=== PATIENT | male | born 1955 | race African-American/Black ===

== ENCOUNTER 2019-07-26 15:44 | Inpatient (IN) | payer OTHER, MEDICAID ==
[~2019-07-26] VITALS: Ht 172.7 cm; Wt 82.7 kg
[2019-07-26] MEDS ORDERED: SODIUM CHLORIDE 0.9% 1,000 ML IV ONE (16:13)
[2019-07-26 16:59] LABS: Basophils # (auto) 0 uL; Eosinophils # (auto) 0 uL; Hematocrit 36.5 % (41.0-53.0); Hemoglobin 11.7 g/dL (13.5-17.5); Mean Corpuscular Hemoglobin 34.1 pg (28.0-32.0); Mean Corpuscular Volume 106.5 fL (80.0-100.0); Monocytes # (auto) 0.6 uL; Monocytes % (auto) 2.1 % (0.0-12.0)
[2019-07-26 17:01] LABS: Basophils % (auto) 0.1 % (0.0-2.0); Lymphocytes # (auto) 0.4 uL; Lymphocytes % (auto) 1.2 % (10.0-50.0); Neutrophils % (auto) 96.6 % (37.0-80.0); Platelet Count (auto) 116 10^3/uL (140-450); Red Blood Cells 3.42 10^6/uL (4.5-5.90); Red Cell Distribution Width 15.2 % (11.8-14.3); White Blood Cell 28.9 10^3/uL (4.4-10.8)
[2019-07-26 17:15] LABS: Alanine Aminotransferase 21 U/L (16-61); Albumin 2.5 g/dL (3.4-5.0); Anion Gap 13 (5-15); Aspartate Aminotransferase 50 U/L (15-37); BUN/Creatinine Ratio 8.1; Blood Urea Nitrogen 18 mg/dL (7-18); Calcium 7.8 mg/dL (8.5-10.1); Carbon Dioxide 16 mmol/L (21-32); Chloride 109 mmol/L (98-107); GFR African American 39 mL/min; GFR Non-African American 32 mL/min; Glucose 194 mg/dL (74-106); Magnesium 1.6 mg/dL (1.6-2.6); Potassium 4.6 mmol/L (3.5-5.1); Sodium 138 mmol/L (136-145)
[2019-07-26 17:17] LABS: Alkaline Phosphatase 70 U/L (45-117); Bilirubin, Total 1.3 mg/dL (0.2-1.0); Total Protein 6.9 g/dL (6.4-8.2)
[2019-07-26 17:20] LABS: Lactic Acid w/Reflex 6.4 mmol/L (0.4-2.0)
[2019-07-26] MEDS ORDERED: NITROGLYCERIN 0.4 MG SL TAB SL PRN (18:45)
[2019-07-26] MEDS ORDERED: MORPHINE SULF INJ 2 MG/ML SYRINGE 1ML IV PRN (18:45)
[2019-07-26] MEDS ORDERED: ONDANSETRON HCL 4 MG/2 ML VIAL IV PRN (18:45)
[2019-07-26] MEDS ORDERED: VANCOMYCIN PER PHARMACY 0 MG IV SCH (18:45)
[2019-07-26] MEDS ORDERED: VANCOMYCIN 1GM/250ML 250 ML IV ONE (20:00)
[2019-07-26 20:10] VITALS: BP 126/86
--- NOTE | 2019-07-26 20:10 | NUR ---
Admit to DEB CIELO KUMAR admitted to DEB via gurney on business development officer Patient transferred to bed, connected to unit monitoring and oxygen, and weighed by bed scale. Patient oriented to Adrienne mcnulty RN, unit, room, bed, and unit policies regarding patient care and visiting hours. All questions and concerns addressed, patient verbalized understanding. NOTE: PATIENT IS AWAKE, ALERT AND ORIENTED X4. NO SOB, DISTRESS OR PAIN NOTED. ON ROOM AIR. ST 110S, BP 90S SYSTOLIC WOUNDS NOTED TO RIGHT KNEE AND ANKLE, AND LEFT ANKLE. PICS WILL BE TAKEN.
--- NOTE | 2019-07-26 20:15 | NUR ---
UNABLE TO OBTAIN MED REC PATIENT DOESN'T KNOW WHAT MEDS HE TAKES AT HOME. SAID THAT HIS FAMILY WILL NOT BE AVAILABLE TO BRING THEM IN TOMORROW. WILL ENDORSE FOR THE AM NURSE TO ATTEMPT
[2019-07-26 20:20] VITALS: BP 126/86
--- NOTE | 2019-07-26 20:25 | NUR ---
HYGIENE CARE FULL BED BATH PERFORMED USING CHG WIPES. GOWN CHANGED. PARTIAL LINEN CHANGED. PATIENT REPOSITIONED FOR COMFORT. TOLERATED IT WELL.
--- NOTE | 2019-07-26 20:30 | NUR ---
MRSA SWAB OBTAINED AND SENT TO LAB VIA BULLET
--- NOTE | 2019-07-26 20:35 | NUR ---
WOUND PICS TAKEN OF RIGHT AND LEFT ANKLES, AND RIGHT KNEE. WOUND FORMS FILLED OUT AND PLACED IN WOUND BOX IN DEB. CAMERA RETURNED TO PSYCHIATRIC.
[2019-07-26] MEDS: SODIUM CHLORIDE 0.9% 1,000 ML IV SCH (21:03)
[2019-07-26] MEDS: MAGNESIUM SULFATE 1GM/100ML 100 ML IV SCH ×2 (21:03→22:28)
[2019-07-26] MEDS: ATORVASTATIN 20 MG TAB PO SCH (21:03)
[2019-07-26] MEDS: HEPARIN SODIUM (PORCINE) 5000 UNITS/ML 1ML VIAL SC SCH (21:04)
--- NOTE | 2019-07-26 21:20 | NUR ---
SPOKE WITH APPLIANCE MECHANIC PHYSICIAN FOR [facility] REGARDING PATIENT. WANTED TO INFORM HER THAT SPOKE WITH DR. HUTCHINS WHO TOLD ME THAT SHE IS UNABLE TO GIVE ME ORDERS BECAUSE THIS PATIENT IS NOT ON HER LIST AND THAT SHE DOESN'T THINK HE HAS [facility]. INFORMED HER THAT DR. BARRIOS ADMITTED THE PATIENT BUT SHE STILL REFUSED TO GIVE ME ORDRERS. CHILD CARE ATTENDANT AWARE. Addendum: 07/27/19 at 0008 by Adrienne Gonsales RN *WANTED TO INFORM HER THAT PATIENTS BP 70-80S AND THAT LACTIC ACID LEVEL WAS STILL ELEVATED NOW 6.3.
[2019-07-26 21:29] LABS: Urine Bacteria FEW /hpf (None Seen); Urine Blood 1+ /uL (Negative); Urine Specific Gravity 1.015 (1.001-1.035); Urine WBC 35 /hpf (0 - 3)
--- NOTE | 2019-07-26 22:55 | NUR ---
SPOKE WITH EVA BRUNO HOSPITALIST REGARDING THE PATIENT. HE SAID THAT HE CANNOT GIVE ORDERS BECAUSE THE PATIENT BELONGS TO [facility].
--- NOTE | 2019-07-26 22:56 | NUR ---
SPOKE WITH LEXA PÉREZ REGARDING NEED FOR ORDERS AND THAT [facility] GUARD CHIEF DOCTOR NOT WANTING TO GIVE ORDERS FOR THE PATIENT. TOLD ME TO CALL HOSPITALIST AND GET ORDERS FROM HIM.
[2019-07-27] VITALS: BP 100/54
[2019-07-27] MEDS: PIPERACILLIN-TAZOB 2.25GM 50 ML IV SCH ×2 (00:11→05:55)
--- NOTE | 2019-07-27 01:00 | NUR ---
STATUS UPDATE PATIENT IS LAYING IN BED SLEEPING. BP MAINTAINING IN THE 90S. WILL HOLD OFF PAGING HOSPITALIST AT THIS TIME.
[2019-07-27 04:00] VITALS: BP 103/52
[2019-07-27 05:04] LABS: Hemoglobin 10.3 g/dL (13.5-17.5); Lymphocytes # (auto) 0.7 uL; Lymphocytes % (auto) 2.8 % (10.0-50.0); Monocytes # (auto) 0.7 uL
[2019-07-27 05:09] LABS: Basophils # (auto) 0.1 uL; Basophils % (auto) 0.4 % (0.0-2.0); Eosinophils # (auto) 0.2 uL; Hematocrit 30.8 % (41.0-53.0); Mean Corpuscular Hemoglobin 34.6 pg (28.0-32.0); Mean Corpuscular Hgb Conc. 33.5 g/dL (32.0-36.0); Mean Corpuscular Volume 103.3 fL (80.0-100.0); Monocytes % (auto) 2.8 % (0.0-12.0); Neutrophils # (auto) 23.9 uL; Platelet Count (auto) 96 10^3/uL (140-450); Red Blood Cells 2.98 10^6/uL (4.5-5.90); Red Cell Distribution Width 14.7 % (11.8-14.3); White Blood Cell 25.7 10^3/uL (4.4-10.8)
[2019-07-27 05:26] LABS: Albumin 2.3 g/dL (3.4-5.0); Calcium 7.9 mg/dL (8.5-10.1); Potassium 3.9 mmol/L (3.5-5.1)
[2019-07-27 05:31] LABS: Bilirubin, Total 1.1 mg/dL (0.2-1.0); Lactic Acid w/Reflex 3.1 mmol/L (0.4-2.0); Total Protein 6.3 g/dL (6.4-8.2)
[2019-07-27] MEDS: HEPARIN SODIUM (PORCINE) 5000 UNITS/ML 1ML VIAL SC SCH ×3 (05:58→22:27)
--- NOTE | 2019-07-27 06:15 | NUR ---
US TECH AT BEDSIDE DOING BILAT LE US.
--- NOTE | 2019-07-27 07:27 | NUR ---
END OF SHIFT REPORT GIVEN AND CARE ENDORSED TO YIMI SHARPE
[2019-07-27 08:00] VITALS: BP 119/54
--- NOTE | 2019-07-27 08:00 | NUR ---
Opening Shift Note Assumed care of patient, awake and alert. Patient A&Ox4. Patient on the monitor. IV right AC 20G running NS at 75ml/hr and left forearm 22G saline locked, both IV's patent, clean, dry, and intact. No S/S of distress/SOB or pain. Instructed on POC and to call for assist. Bed locked and in the lowest position, side rails up x2, call light with in reach. Will continue to monitor.
--- NOTE | 2019-07-27 08:30 | NUR ---
Patient sitting up in bed eating breakfast independently. Will continue to monitor.
--- NOTE | 2019-07-27 09:10 | NUR ---
order entry technician at bedside.
--- NOTE | 2019-07-27 10:00 | NUR ---
Medication dosages, usages, and side effects explained to patient. Patient verbalized understanding. Will continue to monitor.
[2019-07-27] MEDS ORDERED: hydrALAZINE HCL 20 MG/ML VL IV PRN (10:30)
[2019-07-27] MEDS ORDERED: DEXTROSE (50%) 50ML SYRG IV PRN (10:30)
--- NOTE | 2019-07-27 10:30 | NUR ---
Dr. Brennan at bedside.
[2019-07-27] MEDS: PREGABALIN 25 MG CAP PO SCH (10:35)
[2019-07-27] MEDS: SODIUM CHLORIDE 0.9% 1,000 ML IV SCH ×2 (10:36→23:36)
[2019-07-27] MEDS: ASPirin-EC 81 mg tab PO SCH (10:36)
[2019-07-27] MEDS: HYDROcodone-ACET 10/325MG TAB PO PRN ×2 (10:38→22:26)
[2019-07-27] MEDS: ACCU-CHEK COMFORT CURVE STRIP VI SCH ×3 (11:30→22:00)
[2019-07-27] MEDS: InsuLIN REG 1unit/0.01ml Soln (100units/ml) SC SCH ×4 (11:30→22:00)
--- NOTE | 2019-07-27 11:45 | NUR ---
Dr. Ulloa at bedside. No new orders.
[2019-07-27] MEDS: VANCOMYCIN 1GM/250ML 250 ML IV SCH (11:56)
[2019-07-27 12:00] VITALS: BP 127/62
[2019-07-27] MEDS ORDERED: PIPERACILLIN-TAZOB 3.375GM 100 ML IV SCH (12:00)
--- NOTE | 2019-07-27 12:15 | NUR ---
Report given to Saman SHARPE. Patient going to room 286B on tele box #[id number].
--- NOTE | 2019-07-27 12:40 | NUR ---
Patient taken to room 286B. All belongings taken with the patient including Patient's wheel chair. Patient in the room and resting ANNEMARIE smith.
--- NOTE | 2019-07-27 12:45 | NUR ---
Received patient from DEB, patient oriented to new room. Patient awake, alert x 4 and verbally responsive. Respiratory even and unlabored. Skin is warm and dry to touch. Placed call light within reach, will continue to monitor.
[2019-07-27 13:00] VITALS: BP_SYST 112; BP_SYST 128; BP_DIAS 68; BP_DIAS 77
[2019-07-27] MEDS: PIPERACILLIN-TAZOB 3.375GM 100 ML IV SCH ×2 (14:05→18:22)
--- NOTE | 2019-07-27 19:15 | NUR ---
Opening Shift Note Received report from Mary Ellen singer RN. Assumed care of patient, awake and alert, resting in bed saturating at 96% on room air. No S/S of distress/SOB or pain. Instructed on POC and to call for assist PRN, will continue to monitor for changes Q1hr and PRN. Bed placed in lowest position, bed alarm turned on, and call light within reach. Urinal within reach of patient. Wheelchair at bedside. Will monitor.
[2019-07-27 22:00] VITALS: BP 128/72
[2019-07-27] MEDS: ATORVASTATIN 20 MG TAB PO SCH (22:25)
[2019-07-28] MEDS: PIPERACILLIN-TAZOB 3.375GM 100 ML IV SCH ×4 (02:06→18:24)
[2019-07-28 05:00] VITALS: BP 134/82
[2019-07-28] MEDS: VANCOMYCIN 1GM/250ML 250 ML IV SCH ×2 (05:27→23:37)
[2019-07-28] MEDS: HYDROcodone-ACET 10/325MG TAB PO PRN ×3 (05:28→23:51)
[2019-07-28] MEDS: HEPARIN SODIUM (PORCINE) 5000 UNITS/ML 1ML VIAL SC SCH ×2 (05:31→22:38)
[2019-07-28] MEDS: ACCU-CHEK COMFORT CURVE STRIP VI SCH ×4 (06:05→23:38)
[2019-07-28] MEDS: InsuLIN REG 1unit/0.01ml Soln (100units/ml) SC SCH ×4 (06:05→22:00)
--- NOTE | 2019-07-28 07:00 | NUR ---
ROUNDS PATIENT IS RESTING IN BED WITH EYES CLOSED, NO DISTRESS NOTED AND PATIENT DENIES PAIN.
--- NOTE | 2019-07-28 07:58 | NUR ---
Opening Shift Note Assumed care of patient, awake and alert. No S/S of distress/SOB or pain. Instructed on POC and to call for assist PRN, will continue to monitor for changes Q1hr and PRN.
[2019-07-28 08:30] VITALS: BP 124/86
[2019-07-28] MEDS: PREGABALIN 25 MG CAP PO SCH (10:05)
[2019-07-28] MEDS: ASPirin-EC 81 mg tab PO SCH (10:05)
[2019-07-28] MEDS: SODIUM CHLORIDE 0.9% 1,000 ML IV SCH ×2 (10:07→23:38)
[2019-07-28 10:09] LABS: BUN/Creatinine Ratio 11.6; Potassium 3.9 mmol/L (3.5-5.1)
--- NOTE | 2019-07-28 10:30 | NUR ---
Wound care Patient would like to wait until after pain medication for dressing change.
[2019-07-28 12:30] VITALS: BP 140/85
--- NOTE | 2019-07-28 12:30 | NUR ---
Accu Check Accu-check 66, rechecked was 61. Gave cranberry juice x2 and rechecked was at 63. Encouraged patient to eat fruits from lunch tray and rechecked, went to 78. Patient was encouraged to eat his lunch.
[2019-07-28] MEDS ORDERED: HEPARIN SODIUM (PORCINE) 5000 UNITS/ML 1ML VIAL SC SCH (14:00)
--- NOTE | 2019-07-28 15:57 | NUR ---
Seizure Activity Received phone call from mayito stating that patient is having seizure activity. Patient shaking uncontrollably and is unresponsive. Lasted for about 2 minutes. As per family member, the patient was sitting up conversing with them then she said everyone out and beckoned for persons to leave room. Her eyes then went into a fixed stare, she became unresponsive and started to shake. Family member noted that she was complaining of feeling very hot prior to this happening. Her hands were sweating and extremely cold to touch. Ativan 1mg IV administered as ordered and patient began to say "I am sorry". She is alert and oriented but drowsy. V/S P. 111, R. 22, B/P. 136/66, O2. 92-100% Addendum: 07/28/19 at 1616 by CHRISTEL ROBERT RN Please disregard note. Wrong patient
--- NOTE | 2019-07-28 16:10 | NUR ---
Wound Care Patient refusing dressing change at this time, states he is very sleepy as he did not get enough sleep last night.
[2019-07-28 16:50] VITALS: BP 130/80
[2019-07-28 22:00] VITALS: BP 142/85
[2019-07-28] MEDS: ATORVASTATIN 20 MG TAB PO SCH (22:40)
[2019-07-29] MEDS: PIPERACILLIN-TAZOB 3.375GM 100 ML IV SCH ×4 (01:30→19:00)
[2019-07-29 05:00] VITALS: BP 135/80
[2019-07-29] MEDS: ACCU-CHEK COMFORT CURVE STRIP VI SCH ×4 (06:43→22:26)
[2019-07-29] MEDS: HEPARIN SODIUM (PORCINE) 5000 UNITS/ML 1ML VIAL SC SCH ×3 (06:47→22:18)
[2019-07-29] MEDS: InsuLIN REG 1unit/0.01ml Soln (100units/ml) SC SCH ×4 (06:52→22:00)
--- NOTE | 2019-07-29 08:10 | NUR ---
OPENING NOTE ASSUMED CARE OF PT. ALERT AND ORIENTED. NO S/S SOB/DISTRESS NOTED. SAFETY PRECAUTIONS IN PLACE. BED SET TO LOWEST POSITION/LOCKED, BEDSIDE RAILS UP X2, CALL LIGHT WARTHIN REACH. INSTRUCTED PATIENT TO CALL FOR ASSISTANCE. UPDATED ON POC. PT VERBALIZED UNDERSTANDING. WILL CONTINUE TO MONITOR Q1HR AND PRN.
[2019-07-29 08:30] VITALS: BP_SYST 155; BP_SYST 156; BP_DIAS 84; BP_DIAS 89
--- NOTE | 2019-07-29 09:00 | NUR ---
ENDORSED CARE TO ANNEMARIE JOHNSON.
--- NOTE | 2019-07-29 09:30 | NUR ---
Opening shift Assumed care of patient, awake and alert, resting in bed saturating at 96% on room air. No S/S of distress/SOB or pain. Instructed on POC and to call for assist PRN, will continue to monitor for changes Q1hr and PRN. Bed placed in lowest position, bed alarm turned on, and call light within reach. Urinal within reach of patient. Wheelchair at bedside. Will monitor.
[2019-07-29] MEDS: PREGABALIN 25 MG CAP PO SCH (11:00)
[2019-07-29] MEDS: ASPirin-EC 81 mg tab PO SCH (11:01)
[2019-07-29] MEDS: HYDROcodone-ACET 10/325MG TAB PO PRN ×2 (12:29→22:14)
[2019-07-29 13:24] LABS: Basophils # (auto) 0.1 uL; Eosinophils # (auto) 0.2 uL; Hemoglobin 12.4 g/dL (13.5-17.5); Neutrophils # (auto) 6.5 uL
[2019-07-29 13:26] LABS: Basophils % (auto) 1.2 % (0.0-2.0); Eosinophils % (auto) 1.8 % (0.0-7.0); Hematocrit 36.4 % (41.0-53.0); Lymphocytes # (auto) 1.6 uL; Lymphocytes % (auto) 17.2 % (10.0-50.0); Mean Corpuscular Hemoglobin 35.1 pg (28.0-32.0); Mean Corpuscular Volume 103.4 fL (80.0-100.0); Monocytes # (auto) 1.1 uL; Neutrophils % (auto) 67.8 % (37.0-80.0); Nucleated Red Blood Cells % 0.1 %; Platelet Count (auto) 108 10^3/uL (140-450); Red Blood Cells 3.52 10^6/uL (4.5-5.90); Red Cell Distribution Width 14.8 % (11.8-14.3); White Blood Cell 9.5 10^3/uL (4.4-10.8)
[2019-07-29 13:39] LABS: Albumin 2.6 g/dL (3.4-5.0); Calcium 9.3 mg/dL (8.5-10.1)
[2019-07-29 13:42] LABS: BUN/Creatinine Ratio 7.6; Bilirubin, Total 1.1 mg/dL (0.2-1.0); Total Protein 7.5 g/dL (6.4-8.2)
--- NOTE | 2019-07-29 14:35 | NUR ---
Patient off unit, via wheel chair, taken for CT.
[2019-07-29] MEDS: SODIUM CHLORIDE 0.9% 1,000 ML IV SCH (14:53)
--- NOTE | 2019-07-29 15:00 | NUR ---
IV removal IV on right A/C not patent removed with sterile technique, catheter fully intact. Pressure dressing applied to site. Patient tolerated procedure well. NOTE:
--- NOTE | 2019-07-29 16:25 | NUR ---
IV insertion IV access obtained, via clean sterile technique by inserting 22 gauge catheter at right A/C after 3 attempts. IV secured properly. No trauma to site. Patient tolerated well. NOTE:
[2019-07-29 16:58] VITALS: BP 152/65
--- NOTE | 2019-07-29 17:15 | NUR ---
Patient refuses accucheck/Glucose monitoring stated "I'm not diabetic, and I've never been". Patient educated on importance, patient still refused.
[2019-07-29] MEDS: VANCOMYCIN 1GM/250ML 250 ML IV SCH (18:37)
--- NOTE | 2019-07-29 19:30 | NUR ---
received report from day rn poc reviewed
[2019-07-29 22:00] VITALS: BP 145/89
--- NOTE | 2019-07-29 22:00 | NUR ---
up in w/c c/o general leg pain will medicate as ordered
[2019-07-29] MEDS: ATORVASTATIN 20 MG TAB PO SCH (22:15)
--- NOTE | 2019-07-30 01:09 | NUR ---
resting with eyes closed bed alarm intact call light within reach
[2019-07-30] MEDS: PIPERACILLIN-TAZOB 3.375GM 100 ML IV SCH ×4 (04:52→13:00)
[2019-07-30] MEDS: SODIUM CHLORIDE 0.9% 1,000 ML IV SCH (04:53)
[2019-07-30 04:56] VITALS: BP 148/100
[2019-07-30] MEDS: ACCU-CHEK COMFORT CURVE STRIP VI SCH ×2 (05:30→11:30)
[2019-07-30] MEDS: InsuLIN REG 1unit/0.01ml Soln (100units/ml) SC SCH ×2 (05:30→11:30)
[2019-07-30 05:33] LABS: Mean Corpuscular Volume 102.2 fL (80.0-100.0)
[2019-07-30 05:37] LABS: Hemoglobin 11.1 g/dL (13.5-17.5); Mean Corpuscular Hemoglobin 34.3 pg (28.0-32.0); Mean Corpuscular Hgb Conc. 33.6 g/dL (32.0-36.0); Platelet Count (auto) 110 10^3/uL (140-450); Red Blood Cells 3.23 10^6/uL (4.5-5.90); Red Cell Distribution Width 14.7 % (11.8-14.3); White Blood Cell 8.9 10^3/uL (4.4-10.8)
[2019-07-30] MEDS: HEPARIN SODIUM (PORCINE) 5000 UNITS/ML 1ML VIAL SC SCH ×2 (05:39→14:00)
[2019-07-30 05:45] LABS: Calcium 8.9 mg/dL (8.5-10.1); Magnesium 1.8 mg/dL (1.6-2.6); Potassium 3.7 mmol/L (3.5-5.1)
[2019-07-30 05:47] LABS: BUN/Creatinine Ratio 6.1
[2019-07-30 06:11] LABS: Basophils % (manual) 0 (0.0-2.0); Blast Cells 0; Metamyelocytes % 0; Myelocytes % 0; Promyelocytes % 0; Reactive Lymphocytes 0
--- NOTE | 2019-07-30 06:43 | NUR ---
awoke denies pain or discomfort, will continue to monitor and report off to am nurse
[2019-07-30 07:29] LABS: Band Neutrophils % (manual) 3; Eosinophils % (manual) 1 (0-7); Lymphocytes % (manual) 19 (10.0-50.0); Monocytes % (manual) 23 (0-12)
[2019-07-30] MEDS: HYDROcodone-ACET 10/325MG TAB PO PRN (08:34)
[2019-07-30 09:00] VITALS: BP 161/86
[2019-07-30] MEDS ORDERED: MET25T PO (09:09)
[2019-07-30] MEDS ORDERED: PREG100C PO (09:10)
[2019-07-30] MEDS ORDERED: MISC4CAP PO (09:12)
[2019-07-30] MEDS ORDERED: CIPR-173 PO (09:12)
[2019-07-30] MEDS: ASPirin-EC 81 mg tab PO SCH (09:48)
[2019-07-30] MEDS: PREGABALIN 25 MG CAP PO SCH (09:50)
--- NOTE | 2019-07-30 11:29 | NUR ---
WOUND CARE WOUNDS TO BILATERAL ANKLES AND RIGHT KNEE CLEANSED WITH WOUND CLEANSER, PATTED DRY WITH 4X4'S AND COVERED WITH OPTIFOAM, DC PHOTOS TAKEN WELL.
[2019-07-30] MEDS: VANCOMYCIN 1GM/250ML 250 ML IV SCH (12:00)
--- NOTE | 2019-07-30 12:06 | NUR ---
PT REPORTS HIS TRANSPORTATION IS HERE AND HE WANTS TO GO HOME. PT REFUSING ACCUCHECK AND VANCOMYCIN, HE REPORTS HE JUST WANTS TO GO HOME. EDUCATED PATIENT IT MAY TAKE A LITTLE BIT FOR SS TO SET HIM UP WITH HOME HEALTH AND DISCHARGE PAPERWORK TAKES SOME TIME. ENCOURAGED PT TO DO ACCUCHECK AND THE IMPORTANCE OF TAKING ABX TO FIGHT INFECTION. PT REFUSED AGAIN, WILL CONTINUE TO MONITOR.
--- NOTE | 2019-07-30 12:10 | NUR ---
CALLED AUT[employer] RADIO MECHANIC TO SET UP HOME HEALTH PATIENT WOULD LIKE TO GO HOME KEVIN. CALLED AND LEFT MESSAGE WITH BESSY BAUTISTA, AWAITING CALL BACK.
[2019-07-30 12:44] VITALS: BP 161/86
[2019-07-30 13:00] VITALS: BP 169/92
--- NOTE | 2019-07-30 13:08 | NUR ---
PT AND FRIEND AGITATED AND PT REPORTS HE WANTS TO GO HOME. EXPLAINED TO PATIENT DISCHARGE PAPERWORK ALMOST DONE AND CALL ALREADY PUT IN WITH SELF DEFENSE INSTRUCTOR, WAITING TO HEAR BACK.
--- NOTE | 2019-07-30 13:35 | NUR ---
CALLED [facility], PHARMACIST REPORTS THEY WILL FILL PT PRESCRIPTIONS NOW.
--- NOTE | 2019-07-30 14:54 | NUR ---
Assessment Pt is a 64 yr old alert and oriented male. Pt lives at home with his 2 sons who help to take care of him by cooking and cleaning. Pt uses w/c bread supervisor and has a shower chair that he uses. Pt states that he is independent with his ADLs. Pt admitted with a UTI. SS consult for HH order for wound care, PT and safety evaluation. TANYA Arriaza is presently working on setting up the pt with HH. Pt receives income through [employer] because of prior work history. Pt has no interest in AD presently. Pt's son was bedside with the pt and will transport home upon d/c. Pt stated that he feels safe going back home with HH and family support. Pt to d/c back home with services. Addendum: 07/30/19 at 1501 by AGUSTIN CUMMINGS Amended: Links added.
--- NOTE | 2019-07-30 14:58 | NUR ---
PRESCRIPTIONS BROUGHT TO PATIENT BY PHARMACY. SPOKE TO BESSY BAUTISTA, BESSY REPORTS [facility] WILL START SETTING UP HOME HEALTH WITH [facility] NOW. SPOKE WITH PATIENT. PATIENT REPORTS HE DOES NOT WANT TO WAIT, HE WANTS TO GO HOME NOW. EDUCATED PT IT IS HOSPITAL POLICY TO HAVE HOME HEALTH SET UP BEFORE PATIENT LEAVES. PT REPORTS HE WOULD STILL LIKE TO GO HOME. PT ALSO REFUSED AFTERNOON MEDS.
--- NOTE | 2019-07-30 15:30 | NUR ---
HH per Sonya at [facility] pt has been accepted and start of care 24- 48 hrs post d/c
== END 2019-07-30 14:00 | disposition home health service (06) | DRG 871 ==
LOC: EDBD 15:44 → ER 15:52 → TELE 15:53 → DOU IN ICU 20:53 → TELE-WESTW 07-27 12:34
PROVIDERS: ADMIT Hospitalist; ATTEND Hospitalist
DX: A41.9 Sepsis, unspecified organism (principal); L89.514 Pressure ulcer of right ankle, stage 4; N17.0 Acute kidney failure with tubular necrosis; N39.0 Urinary tract infection, site not specified; I24.8 Other forms of acute ischemic heart disease; Z16.11 Resistance to penicillins; B96.1 Klebsiella pneumoniae [K. pneumoniae] as the cause of diseases classified elsewhere; E86.0 Dehydration; I10 Essential (primary) hypertension; E78.5 Hyperlipidemia, unspecified; E11.40 Type 2 diabetes mellitus with diabetic neuropathy, unspecified; I87.8 Other specified disorders of veins; L89.899 Pressure ulcer of other site, unspecified stage; J44.9 Chronic obstructive pulmonary disease, unspecified; E11.22 Type 2 diabetes mellitus with diabetic chronic kidney disease; F17.200 Nicotine dependence, unspecified, uncomplicated; I12.9 Hypertensive chronic kidney disease with stage 1 through stage 4 chronic kidney disease, or unspecified chronic kidney disease; N18.3 Chronic kidney disease, stage 3 (moderate); G89.29 Other chronic pain
CPT/HCPCS: 36415; 71045; 73700; 76700; 80048; 80053; 80202; 81001; 82962; 83605; 83735; 83880; 84484; 85007; 85025; 85027; 86141; 87040; 87077; 87081; 87086; 87088; 87186; 87205; 93005; 93306; 93926; 94761; 96360; 99291; G0378; J1815; J2405; J2543

== ENCOUNTER → 2019-12-06 | Emergency (ER) | payer OTHER, MEDICAID ==
[~2019-12-06] VITALS: Ht 170.2 cm; Wt 76.2 kg
[~2019-12-06] MED LIST: CIPR-173 PO; MET25T PO; MISC4CAP PO; PREG100C PO
[2019-12-06 15:19] VITALS: BP 127/82
== END | disposition left against medical advice (07) ==
LOC: ER 14:40
DX: M54.2 Cervicalgia (principal); Z53.21 Procedure and treatment not carried out due to patient leaving prior to being seen by health care provider
CPT/HCPCS: 72040

== ENCOUNTER 2019-12-07 12:36 | Emergency (ER) | payer OTHER, MEDICAID ==
[~2019-12-07] VITALS: Ht 170.2 cm; Wt 76.2 kg
[2019-12-07 12:59] VITALS: BP 107/70
[2019-12-07] MEDS ORDERED: diazePAM 5 MG TAB PO ONE (16:00)
[2019-12-07] MEDS ORDERED: KETOROLAC TROMETH 60MG/2ML VIAL IM ONE (16:00)
== END 2019-12-07 16:48 | disposition home or self-care (01) ==
LOC: ER 12:41
DX: M43.6 Torticollis (principal); E11.9 Type 2 diabetes mellitus without complications; E78.5 Hyperlipidemia, unspecified; I10 Essential (primary) hypertension
CPT/HCPCS: 96372; 99283; J1885

== ENCOUNTER 2019-12-21 15:17 | Emergency (ER) | payer OTHER, MEDICAID ==
[~2019-12-21] VITALS: Ht 170.2 cm; Wt 77.1 kg
[2019-12-21 18:35] VITALS: BP 129/83
[2019-12-21] MEDS ORDERED: cefTRIAXone W LIDOCAINE 1 GM IM IM ONE (19:15)
== END 2019-12-21 20:02 | disposition home or self-care (01) ==
LOC: ER 15:17 → EDBD 15:17 → ER 20:02
DX: L03.115 Cellulitis of right lower limb (principal); L03.116 Cellulitis of left lower limb; E11.9 Type 2 diabetes mellitus without complications; I10 Essential (primary) hypertension; E78.5 Hyperlipidemia, unspecified; F17.210 Nicotine dependence, cigarettes, uncomplicated; Z79.2 Long term (current) use of antibiotics; Z79.899 Other long term (current) drug therapy
CPT/HCPCS: 73630; 96372; 99283; J0696